=== PATIENT | female | born 1975 | race Caucasian/White ===

== ENCOUNTER 2025-06-10 07:25 | Day surgery (SDC) | payer BC ==
[~2025-06-10] VITALS: Ht 162.6 cm; Wt 85.0 kg
[~2025-06-10 07:25] MED LIST: FISH OIL 1,0001 EAC6 PO; IBLOOD GLUCOSE TEST STRIP 1 EA TEST VI PRN; LACTATED RINGER'S 1,000 ML IV SCH; LIDOCAINE HCL 1% 5 ML SDV INJ ONE; RED YEAST RIC1000 GM MISC
[2025-06-10 07:35] VITALS: BP 155/86
[2025-06-10 07:45] LABS: BASOPHILS 1.0 % (0.1-1.2); EOSINOPHILS 2.4 % (0.7-5.8); LYMPHOCYTES 30.3 % (19.3-51.7); MCH 31.1 PG (25.6-32.2); MCHC 34.1 g/dL (32.2-35.5); MCV 91.2 fL (79.4-94.8); MONOCYTES 8.9 % (4.7-12.5); NEUTROPHILS 57.3 % (34.0-71.1); RBC 4.54 M/uL (3.93-5.22)
--- NOTE | 2025-06-10 07:55 | NUR ---
VISITED DURING SPIRITUAL CARE ROUNDS. PT SUPPORTED BY IN ROOM. BOTH IN OVERALL GOOD SPIRITS; NO IMMEDIATE NEEDS. INTERIOR WALL ASSEMBLER PROVIDED SUPPORTIVE PRESENCE, HOSPITALITY, PRAYER, FACILITATED INTERACTION WITH THERAPY ANIMAL. PT AND EXPRESSED GRATITUDE.
[2025-06-10] MEDS ORDERED: LIDOCAINE HCL 2% 5 ML SDV ONE (08:46)
--- NOTE | 2025-06-10 10:23 | NUR ---
06/10/25 Nikky3 Haleigh Champagne 1017-PATIENT ARRIVED TO PACU ON 6L MASK NONAROUSABLE RR EVEN LAYING LEFT LATERAL. ABDOMEN SOFT. IVF INFUSING. SR HR 60'S.
[2025-06-10 10:51] VITALS: BP 131/89
== END 2025-06-10 11:00 | disposition home or self-care (01) ==
LOC: DS 07:25
PROVIDERS: ATTEND Surgery
PROC: 0DBN8ZX Excision of Sigmoid Colon, Via Natural or Artificial Opening Endoscopic, Diagnostic (ICD-10-PCS; principal; 2025-06-10 09:00)
DX: Z12.11 Encounter for screening for malignant neoplasm of colon (principal); K63.5 Polyp of colon; K64.9 Unspecified hemorrhoids; Z80.0 Family history of malignant neoplasm of digestive organs; Z88.1 Allergy status to other antibiotic agents; Z88.8 Allergy status to other drugs, medicaments and biological substances
CPT/HCPCS: 00811; 36415; 84702; 84703; 85025; J2003; J2704; J7121